=== PATIENT | male | born 1945 | race Two or more races ===

== ENCOUNTER 2018-09-05 10:36 | Emergency (ER) | payer MEDICARE, OTHER ==
[~2018-09-05] VITALS: Ht 165.1 cm; Wt 68.0 kg
[2018-09-05 10:46] VITALS: BP 143/77
--- NOTE | 2018-09-05 10:48 | NUR ---
ED Nurse Note: pt brought by private ambulance from [facility] due to malfunction of g-tube. pt came with 20F g-tube on upper abdomen. patent noted. able to flush with 50ml of tap water. RN unable to get any residual after flush. pt open eyes spontaneously, non-verbal. pt is bed bound. no open wound ntoed on anterior body part. will wait for the further order.
--- NOTE | 2018-09-05 10:59 | Emergency Room Report ---
History of Present Illness General Chief Complaint: Malfunctioning Gastric Tube Source: Medical Record, EMS Present Illness HPI Patient presents with reports of malfunctioning feeding tube Patient himself is nonverbal This does limit the history of present illness There was no reports of vomiting or diarrhea Unclear the duration of malfunction There was no reports of fevers Allergies: Coded Allergies: No Known Allergies (Unverified , 09/05/18) Patient History Limited by: medical condition Pertinent Family History: unable to obtain Reviewed Nursing Documentation: PMH: Agreed; PSxH: Agreed Review of Systems All Other Systems: limited - Other than the ones mentioned in the history of present illness all others are reviewed however they do stay limited due to the patient's mental status Physical Exam Vital Signs Date Time Temp Pulse Resp B/P (MAP) Pulse Ox O2 Delivery O2 Flow Rate FiO2 09/05/18 10:37 98.1 66 16 98 Room Air 09/05/18 10:46 143/77 Sp02 EP Interpretation: reviewed, normal General Appearance: no apparent distress Head: normocephalic, atraumatic Eyes: bilateral eye PERRL, bilateral eye EOMI ENT: normal pharynx Neck: supple Respiratory: lungs clear, no respiratory distress, no retraction Cardiovascular #1: regular rate, rhythm Gastrointestinal: other - Distal aspect of the feeding tube at the stoma stoma is patent very minimal erythema around the region no fluctuance, Musculoskeletal: other - Chronically debilitated Neurologic: responsive Skin: no rash, warm/dry Lymphatic: no adenopathy Medical Decision Making Diagnostic Impression: Primary Impression: Malfunction of gastrostomy tube ER Course On attempt to deflated the existing tube there was no saline, and the existing tube was removed without incidence, after this similar size feeding tube was placed through the stoma without any resistance in the usual manner x-ray imaging reveals appropriate Intra-lumen positioning without signs of extravasation areas takedown and patient stable for transfer back to nursing facility Other X-Ray Diagnostic Results Other X-Ray Diagnostic Results : X-Ray ordered: kub # of Views/Limited Vs Complete: 1 View Indication: Other - tube placement EP Interpretation: Yes Interpretation: no dislocation, no soft tissue swelling, no fractures, other - No extravasation Impression: No acute disease - No extravasation, contrast in lumen appropriately Electronically Signed by: Macie Mike DO Last Vital Signs Date Time Temp Pulse Resp B/P (MAP) Pulse Ox O2 Delivery O2 Flow Rate FiO2 09/05/18 10:46 98.1 66 16 143/77 98 Room Air Status: improved Disposition: XFER SNF Condition: Improved Additional Instructions: Patient is provided with the discharge instructions notified to follow up with primary doctor in the next 2-3 days otherwise return to the er with any worsening symptoms. Please note that this report is being documented using DRAGON technology. This can lead to erroneous entry secondary to incorrect interpretation by the dictating instrument. Macie Mike DO September 05, 2018 10:59
[2018-09-05 11:19] VITALS: BP 143/77
--- NOTE | 2018-09-05 11:21 | NUR ---
ED Nurse Note: x-ray confirmed g-tube replacemnet. Dr. bhandari confirmed and ok to discharge pt. pt transferred back to [facility] by [facility]. RITESH Villalobos at [facility] notified.
--- NOTE | 2018-09-05 11:41 | Diagnostic Imaging Report ---
Indication: Gastrostomy injection Comparison: None Single view of the abdomen obtained Findings: The balloon of the gastrostomy is in the antral region of the stomach very close to the pylorus. There is contrast mainly within the pyloric channel and duodenum. There is no leak identified. IMPRESSION: No leak. Gastrostomy position is distal near or at the pylorus. This is not ideal and at risk for distal migration of the balloon. Consider revision.
== END 2018-09-05 11:22 ==
LOC: EDBD 10:36 → EMR 11:09
DX: K94.23 Gastrostomy malfunction (principal)
CPT/HCPCS: 74018; 99283